=== PATIENT | male | born 1980 | race Caucasian/White ===

== ENCOUNTER 2022-08-08 12:13 | Emergency (ER) | payer OTHER ==
--- NOTE | 2022-08-08 13:23 | XRAY Report ---
PROCEDURE: Foot 3 View RT INDICATIONS: R foot vs rock TECHNIQUE: 3 views of the foot were acquired. COMPARISON: None. FINDINGS: Bones: No fractures or dislocations. No suspicious bony lesions. Soft tissues: No suspicious soft tissue calcifications or masses. IMPRESSION: No displaced fractures are seen on this plain film study. In this patient with a given history of trauma, please correlate with focal tenderness. If clinically appropriate, please consider a short-term follow-up plain films series versus a dedicated CT study. Reviewed by: Russell Herrera MD on 08/08/2022 12:21 PM LIZET Approved by: Russell Herrera MD on 08/08/2022 12:21 PM LIZET Station ID: [id number]
--- NOTE | 2022-08-08 14:26 | ED Physician Documentation ---
PD HPI LOWER EXT INJURY - Stated complaint Stated Complaint: RT FOOT INJURY - Chief complaint Chief Complaint: Ext Problem - History obtained from History obtained from: Patient - Additional information Additional information: Patient is a 41-year-old male presenting for evaluation of right foot pain since yesterday. [place] and [place] a rock when trying to kick a soccer ball. He reports pain which is dull at rest and worse with ambulating. He does not take a blood thinner. He denies prior injuries to the foot. Review of Systems Constitutional: denies: Fever Cardiac: denies: Chest pain / pressure Respiratory: denies: Dyspnea Musculoskeletal: reports: Extremity pain Neurologic: denies: Headache PD PAST MEDICAL HISTORY - Allergies Allergies/Adverse Reactions: Allergies Allergy/AdvReac Type Severity Reaction Status Date / Time No Known Drug Allergies Allergy Verified 08/08/22 12:41 PD ED PE NORMAL - General General: Alert and oriented X 3, No acute distress, Well developed/nourished - HEENT HEENT: Atraumatic - Cardiac Cardiac: Strong equal pulses - Respiratory Respiratory: No respiratory distress - Extremities Extremities: Other (Tenderness to ball of right foot, normal range of motion at all joints, distal pulses intact, Incision intact, no Erythema or significant swelling) - Neuro Neuro: No motor deficit, No sensory deficit Results - Vitals Vitals: Vital Signs - 24 hr 08/08/22 08/08/22 12:38 14:38 Temperature 36.8 C 36.8 C Heart Rate 91 77 Respiratory 17 19 Rate Blood Pressure 158/98 H 141/92 H O2 Saturation 98 100 Oxygen O2 Source Room air PD Medical Decision Making - ED course Complexity details: reviewed results, re-evaluated patient ED course: Patient presenting for evaluation of Right foot pain after accidentally kicking a rock. An x-ray was obtained which shows no fracture or dislocation.I did offer the patient crutches to stay off the foot but he prefers to try an Mayito wrap and is okay with ambulating on it. We discussed continued supportive care with anti-inflammatories, ice, elevation. He understands the need for close follow-up with his PCP as well as concerning symptoms to return for. Departure - Departure Disposition: 01 Home, Self Care Clinical Impression: Right foot injury Condition: Stable Instructions: ED Sprain Foot Follow-Up: AMANDA Trivedi [Provider Group] Comments: Your x-ray does not show a broken or out of place bone at this time. Please continue to use the Mayito wrap as needed along with acetaminophen or ibuprofen as needed for pain, ice and elevation. I would recommend close follow-up with your PCP if your symptoms or not improving as you may need a repeat x-ray or further imaging. Discharge Date/Time: 08/08/22 14:48
[2022-08-08 14:39] VITALS: BP 141/92
== END 2022-08-08 14:48 | disposition home or self-care (01) ==
LOC: ED 12:13
DX: S99.921A Unspecified injury of right foot, initial encounter (principal); W22.09XA Striking against other stationary object, initial encounter; Y93.66 Activity, soccer
CPT/HCPCS: 99283

== ENCOUNTER 2022-10-01 13:24 | Outpatient (CLI) | payer OTHER ==
--- NOTE | 2022-10-01 16:00 | MRI Report ---
PROCEDURE: FOOT WO - RT INDICATIONS: FOOT PAIN TECHNIQUE: Noncontrast sagittal T1 spin echo and T2 fast spin echo with fat saturation, long-axis T1 spin echo a nd T2 fast spin echo with fat saturation, short-axis proton density fast spin echo and T2 fast spin e cho with fat saturation through the forefoot. COMPARISON: Right foot radiographs 08/08/2022 FINDINGS: Image quality: Excellent. Bones and joints: There is a nondisplaced intra-articular fracture at the base of the 3rd metatarsal extending tarsometatarsal joints with mild focal [id number] signal. The sesamoid bones appear in expected positions, without internal edema. Mild to moderate degenerative changes of the 1st metat arsophalangeal joint. No intraosseous lesions. Soft tissues: Mild nonspecific subcutaneous soft tissue edema is seen at the plantar aspect of the fo ot adjacent to the skin marker. The visualized plantar foot muscles demonstrate normal signal and bul k. Visualized flexor and extensor tendons appear intact, without tenosynovitis. No soft tissue gang lion cysts or bursal fluid collections. Sagittal images demonstrate no evidence for plantar plate te ars. IMPRESSION: 1.Nondisplaced intra-articular fracture at the base of the 3rd metatarsal extending into the tarsomet atarsal joints with minimal associated [id number] signal. 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 3.Soft tissue edema at the plantar aspect of the forefoot adjacent to the skin marker represent a sof t tissue contusion. Reviewed by: Jarvis Lofton MD on 10/01/2022 3:59 PM PDT Approved by: Jarvis Lofton MD on 10/01/2022 3:59 PM PDT Station ID: [id number]
== END 2022-10-01 13:25 | disposition home or self-care (01) ==
LOC: DI 13:24
PROVIDERS: ATTEND Student in an Organized Health Care Education/Training Program
DX: S92.334A Nondisplaced fracture of third metatarsal bone, right foot, initial encounter for closed fracture (principal); S90.31XA Contusion of right foot, initial encounter